=== PATIENT | male | born 1955 | race Caucasian/White ===

== ENCOUNTER 2020-01-19 10:51 | Outpatient (RCR) | payer MEDICARE, OTHER ==
[~2020-01-19] VITALS: Ht 190.5 cm; Wt 150.4 kg
[~2020-01-19 10:51] MED LIST: CALCIUM 600600 MG PO; CARAFATE 1GM1 G PO; HEALTH CARE AM600 M1 PO; INDOCIN50 MG PO; LASIX 20MG TABL20 MG PO; MULTIPLE VITAMI1 CAP PO; NEXIUM 40MG40 MG PO; NORCO 325 MG-51 TAB PO; POTASSIUM99 MG PO; PRILOSEC 20MG20 MG PO; PRINIVIL20 MG PO; SYNTHROID0.05 MG/TA PO; ULTRAM 50MG TAB50 MG PO; VITAMIN D5000 IU PO
[2020-01-19] MEDS ORDERED: CLEOCIN HCL300 MG PO (11:20)
[2020-01-19] MEDS ORDERED: NORCO 325 MG-7.1 TAB PO (11:21)
[2020-01-19] MEDS ORDERED: FLEXERIL 1010 MG/TAB PO (11:21)
[2020-01-19] MEDS ORDERED: NEURONTIN300 MG/CAP PO (11:21)
[2020-01-19] MEDS ORDERED: CARAFATE 1GM1 G PO (11:22)
[2020-01-19] MEDS ORDERED: PRILOSEC 20MG20 MG PO (11:23)
[2020-01-19] MEDS ORDERED: FLOMAX 0.40.4 MG/CAP PO (11:23)
[2020-01-19] MEDS ORDERED: LYRICA 150MG C150 MG PO (11:23)
[2020-01-19] MEDS ORDERED: REQUIP 1MG T1 MG/TAB PO (11:24)
[2020-01-19] MEDS ORDERED: LASIX 20MG TABL20 MG PO (11:24)
[2020-01-19] MEDS ORDERED: PAXIL 20MG20 MG PO (11:24)
[2020-01-19] MEDS ORDERED: ONE-A-DAY ESSE1 EACH PO (11:25)
[2020-01-19] MEDS ORDERED: ZESTRIL 20MG TA20 MG PO (11:25)
[2020-01-19] MEDS ORDERED: VITAMIN B12 1541 TAB PO (11:27)
[2020-01-19 12:35] VITALS: BP 152/83; PULSE 73; TEMP 97.9
--- NOTE | 2020-01-19 13:00 | NUR ---
Pt assisted out to 's car by wheelchair. PICC line patent, and first dose of antibiotic was given. Pt and express understanding to follow up with [place] and [facility] for additional antibiotic and future PICC cares.
== END 2020-01-19 13:00 ==
LOC: EUO 10:51
DX: M46.40 Discitis, unspecified, site unspecified (principal); E11.69 Type 2 diabetes mellitus with other specified complication; M46.20 Osteomyelitis of vertebra, site unspecified
CPT/HCPCS: C1751; J0878

== ENCOUNTER → 2021-11-11 | Outpatient (CLI) | payer MEDICARE, OTHER ==
[~2021-11-11] MED LIST changes: +CLEOCIN HCL300 MG PO; +FLEXERIL 1010 MG/TAB PO; +FLOMAX 0.40.4 MG/CAP PO; +LYRICA 150MG C150 MG PO; +NEURONTIN300 MG/CAP PO; +NORCO 325 MG-7.1 TAB PO; +ONE-A-DAY ESSE1 EACH PO; +PAXIL 20MG20 MG PO; +REQUIP 1MG T1 MG/TAB PO; +VITAMIN B12 1541 TAB PO; +ZESTRIL 20MG TA20 MG PO
[2021-11-11 08:05] LABS: ARTERIAL BLD GAS O2 SATURATION 94.6 % (92-100); ARTERIAL BLD GAS TCO2 CT 21.3; ARTERIAL BLOOD GAS BASE EXCESS -4.4 (-2-2); ARTERIAL BLOOD GAS HCO3 20.2 meq/L (22-26); ARTERIAL BLOOD GAS PCO2 35.7 mmHg (35-45); ARTERIAL BLOOD GAS PO2 79.9 mmHg (80-100); ARTERIAL BLOOD GAS pH 7.37 (7.35-7.45)
== END ==
LOC: COL.PUL 07:11
PROVIDERS: Internal Medicine Pulmonary Disease
DX: R06.02 Shortness of breath (principal)

== ENCOUNTER 2022-07-29 14:33 | Inpatient (IN) | payer MEDICARE, OTHER ==
[~2022-07-29] VITALS: Ht 190.5 cm; Wt 137.3 kg
[~2022-07-29 14:33] MED LIST changes: -NEURONTIN300 MG/CAP PO; +NEURONTIN600 MG/TAB PO; +NORCO 325 MG-101 TAB PO; -NORCO 325 MG-7.1 TAB PO; -PAXIL 20MG20 MG PO; +PAXIL40 MG PO
[2022-07-29 17:00] VITALS: BP_SYST 161
[2022-07-29 17:28] VITALS: BP 161/80; PULSE 102; TEMP 98.8
[2022-07-29 17:29] LABS: MEAN CELL VOLUME 81 fl (80.0-100.0); MEAN CORPUSCULAR HGB CONC 32 g/dl (33.0-37.0); MEAN PLATELET VOLUME 9.5 fl (7.4-10.4); PLATELET COUNT 665 K/mm3 (130-400); RED BLOOD COUNT 3.74 M/mm3 (4.20-5.60); REDCELL DISTRIBUTION WIDTH-CV 15.8 % (11.5-14.5)
[2022-07-29 17:31] LABS: HEMATOCRIT 30.3 % (42.0-52.0); HEMOGLOBIN 9.6 g/dl (13.5-18.0); MEAN CORPUSCULAR HEMOGLOBIN 26 pg (27-31)
[2022-07-29 17:33] LABS: CALCIUM 9.2 mg/dL (8.4-10.2); CREATININE, serum 0.92 mg/dL (0.72-1.25); POTASSIUM 3.2 mmol/L (3.5-4.5)
--- NOTE | 2022-07-29 17:42 | NUR ---
PATIENT ADMITTED TO ROOM 314 FROM [facility] ACCOMPANIED BY EMS. PATIENT IS ALERT AND ORIENTED X4. C/O PAIN 11/13- STATES THIS IS CHRONIC BACK PAIN FOR WHICH HE TAKES OXYCODONE. LUNGS CTA. TELEMETRY IMPLEMENTED PER ORDER. CARDIOLOGY CONSULTED PER ORDER. ON CARDIZEM DRIP AT 10ML/HR UPON ARRIVAL, NEW ORDERS RECEIVED TO CONTINUE CARDIZEM DRIP. HEPARIN DRIP RUNNING WELL. PATIENT ORIENTED TO ROOM. DENIES NEEDS AT THIS TIME. CALL LIGHT WITHIN REACH.
[2022-07-29] MEDS ORDERED: ROBAXIN 75750 MG/TAB PO (18:14)
--- NOTE | 2022-07-29 19:45 | NUR ---
Initial shift assessment done- has been waiting for his home pain meds to be reordered-states chronic back pain for the past 15 yrs has been on pain meds- did give him the [place] as ordered from home meds-- after given he asked where the second one was ? I said only one was ordered per his med rec and it was a [place] 10 ,,, pt then said asked if oxycodone is different than [place] because he takes oxycodone at home not [place]-- states he takes 20mg of oxycodone po every 4 hours -- he has taken it like this for years due to chrnic back pain-- pt states he really needs this, back pain 12/14. Will call regis RUIZ with this update. Has heparin drip at 23cc/hr, also cardizem drip at 10cc/hr , VSS,
[2022-07-29 20:00] VITALS: BP_SYST 127
[2022-07-29 20:12] VITALS: BP 151/76; PULSE 92; TEMP 98.5
[2022-07-29 23:52] VITALS: BP 127/70; PULSE 95; TEMP 98.4
[2022-07-30] VITALS (20 sets, daily range): BP systolic 115–173; BP diastolic 65–89; PULSE 75–110; TEMP 98–98.6
[2022-07-30] MEDS ORDERED: DAZIDOX10 MG PO (03:44)
[2022-07-30] MEDS ORDERED: PERCOCET 325 MG1 TAB PO (05:36)
--- NOTE | 2022-07-30 06:00 | NUR ---
Has been sleeping fair most of the night-- VSS, states his back pain 11/13- has been getting the oxycodone every 4 nickolas hours, did talk to Loly RUIZ about the oxycodone and finding out per pharmacy filled info that it is actually percocet that he has been taking-- she did change this in JUN- pt requests pain meds and then falls back asleep before i can give them to him- heparin drip is at 24.5cc/hr at this time- hepxa at 0700.
[2022-07-30 08:01] LABS: BASO % 0.5 % (0.0-2.0); EOS # 0.2 K/mm3 (0.0-0.7); EOS % 2.1 % (0.0-4.0); GRAN # 5.8 K/mm3 (1.4-6.5); GRAN % 66.1 % (42.2-75.2); LYMPH % 22.7 % (20.0-51.0); MEAN CELL VOLUME 83 fl (80.0-100.0); MEAN CORPUSCULAR HGB CONC 31 g/dl (33.0-37.0); MEAN PLATELET VOLUME 9.6 fl (7.4-10.4); MONO # 0.7 K/mm3 (0.1-0.6); MONO % 8.3 % (1.7-9.3); PLATELET COUNT 670 K/mm3 (130-400); RED BLOOD COUNT 3.55 M/mm3 (4.20-5.60); REDCELL DISTRIBUTION WIDTH-CV 15.8 % (11.5-14.5)
[2022-07-30 08:07] LABS: HEMATOCRIT 29.4 % (42.0-52.0); HEMOGLOBIN 9.2 g/dl (13.5-18.0); MEAN CORPUSCULAR HEMOGLOBIN 26 pg (27-31)
[2022-07-30 08:08] LABS: ALBUMIN 2.6 gm/dL (3.4-4.8); CALCIUM 9.4 mg/dL (8.4-10.2); CREATININE, serum 0.91 mg/dL (0.72-1.25); MAGNESIUM 1.6 mg/dL (1.6-2.6); PHOSPHOROUS 3.1 mg/dL (2.3-4.7); POTASSIUM 3.2 mmol/L (3.5-4.5)
--- NOTE | 2022-07-30 08:48 | NUR ---
Shift assessment done this morning. Patient is resting on bed. Complains pain 6/10. Pain meds is given around 0630 by night nurse. Patient is on 4LNC. Denies any SOB. Will continue to monitor.
--- NOTE | 2022-07-30 08:55 | NUR ---
SW met with the patient to discuss discharge plan. The patient lives in [place] with his , Lois (ph#[phone]). He reports independence with ADLs and has a cane and walker available if needed. The patient is currently on 4 liters of oxygen. He confirms he does not have home oxygen. The patient's PCP is Dr. Bob Lazo and he obtains his medications from [facility]. The patient does not have a DPOA-HC and he was not interested in completing one at this time. The patient plans to return home with his upon discharge. No additional needs at this time. *Discharge plan: home with *
--- NOTE | 2022-07-30 09:51 | NUR ---
Initial visit; Patient thanked Technical Applications Scientist for looking in on him and offering Spiritual Care though declined. Technical Applications Scientist wished him a blessed day.
[2022-07-30] MEDS ORDERED: PRINIVIL20 MG PO (12:33)
--- NOTE | 2022-07-30 13:30 | NUR ---
Dr. Thompson is notified that his cardizem drip was stopped for approximately for about an hour around this around 1230pm to 1330pm. Dr. Thompson said its ok.
--- NOTE | 2022-07-30 14:55 | NUR ---
Patient is back from Environmental Journalist. Alert and oriented, and vital signs are stable.
--- NOTE | 2022-07-30 17:15 | NUR ---
Patient is Tachicardic running upper 140s. He complained SOB after using restroom. His oxygen saturation was 88% on 4L NC. Increased O2 5L and he is on 94% right now. Dr. Maynard is notified. He has ordered EKG at this time. Will continue to monitor.
[2022-07-31 03:47] VITALS: BP 147/77; PULSE 102; TEMP 97.9
[2022-07-31 07:05] LABS: BASO % 0.4 % (0.0-2.0); EOS # 0.2 K/mm3 (0.0-0.7); EOS % 2.8 % (0.0-4.0); GRAN # 5.2 K/mm3 (1.4-6.5); GRAN % 68.6 % (42.2-75.2); LYMPH # 1.5 K/mm3 (1.2-3.4); LYMPH % 19.3 % (20.0-51.0); MEAN CELL VOLUME 81 fl (80.0-100.0); MEAN CORPUSCULAR HGB CONC 32 g/dl (33.0-37.0); MEAN PLATELET VOLUME 9.5 fl (7.4-10.4); MONO # 0.6 K/mm3 (0.1-0.6); MONO % 8.2 % (1.7-9.3); PLATELET COUNT 671 K/mm3 (130-400); RED BLOOD COUNT 3.79 M/mm3 (4.20-5.60); REDCELL DISTRIBUTION WIDTH-CV 15.5 % (11.5-14.5)
[2022-07-31 07:10] LABS: HEMATOCRIT 30.8 % (42.0-52.0); HEMOGLOBIN 9.7 g/dl (13.5-18.0); MEAN CORPUSCULAR HEMOGLOBIN 26 pg (27-31)
[2022-07-31 07:25] LABS: ALBUMIN 2.6 gm/dL (3.4-4.8); CALCIUM 9.8 mg/dL (8.4-10.2); CREATININE, serum 0.95 mg/dL (0.72-1.25); MAGNESIUM 1.6 mg/dL (1.6-2.6); PHOSPHOROUS 3.4 mg/dL (2.3-4.7)
[2022-07-31 08:07] VITALS: BP 152/80; PULSE 96; TEMP 98.4
[2022-07-31 08:53] VITALS: BP_SYST 152
[2022-07-31 11:58] VITALS: BP 137/77; PULSE 60; TEMP 97.9
[2022-07-31 13:01] VITALS: BP_SYST 137
[2022-07-31] MEDS ORDERED: PACERONE200 MG PO ×2 (13:27)
[2022-07-31] MEDS ORDERED: ELIQUIS 5MG PO ×2 (13:28)
[2022-07-31] MEDS ORDERED: CARDIZEM CD 12120 MG PO ×2 (13:28)
[2022-07-31] MEDS ORDERED: PREDNISONE10 MG PO ×2 (13:48)
[2022-07-31] MEDS ORDERED: CEFTIN500 MG PO ×2 (13:49)
[2022-07-31] MEDS ORDERED: DOXYCYCLINE 10100 MG PO ×2 (13:49)
--- NOTE | 2022-07-31 14:02 | NUR ---
The clinical team is ready to discharge the patient today. An exercise oximetry was ordered. RT notified SW that the patient qualified for 4 liters of oxygen. The patient is now in droplet isolation. SW contacted the patient to address the above and inquire what DME company he would like to get the oxygen from. The patient is agreeable to getting the oxygen from [facility]. EMILY contacted and faxed the oxygen order to Don at [facility]. Don states that they will deliver the oxygen to the patient's room today. RN updated. No additional needs at this time.
--- NOTE | 2022-07-31 17:39 | NUR ---
Pt reported that Eloquis was going to have a $200.00 deductible and told his pharmacy not to fill it. This nurse reiterated the importance of blood thinners with a dx of afib. This nurse called [facility] to confirm and spoke with Ryan who did infact confirm. Pt has Medicare ([employer]) which doesn't allow use of agricultural researcher coupon this nurse requested from pharmacy. This nurse contact Dr. Maynard who then came to speak to the pt. This nurse administered bedtime eloquis prior to discharge and notified Dr. Thompson that follow up would be required for the patient. Pt also requested pain medication prior to discharge- Percocet 2 tabs administered po.
--- NOTE | 2022-07-31 17:58 | NUR ---
Patient is discharged home. Discharge instruction is reviewed with patient and his family. Patient verbalizes understanding of discharge instructions. IV is discontinued. This nurse escorted the patient to his private vehicle along side with his family.
== END 2022-07-31 16:20 | disposition home or self-care (01) | DRG 193 ==
LOC: SURG 14:33 → MEDICAL 16:41
PROVIDERS: Nurse Practitioner; ADMIT Internal Medicine
DX: J18.9 Pneumonia, unspecified organism (principal); J96.01 Acute respiratory failure with hypoxia; I48.91 Unspecified atrial fibrillation; D64.9 Anemia, unspecified; E87.6 Hypokalemia; D75.839 Thrombocytosis, unspecified; K21.9 Gastro-esophageal reflux disease without esophagitis; N40.0 Benign prostatic hyperplasia without lower urinary tract symptoms; Z96.653 Presence of artificial knee joint, bilateral; Z20.822 Contact with and (suspected) exposure to COVID-19; G89.29 Other chronic pain; M54.9 Dorsalgia, unspecified; M79.2 Neuralgia and neuritis, unspecified; I35.0 Nonrheumatic aortic (valve) stenosis; Z88.6 Allergy status to analgesic agent; Z98.84 Bariatric surgery status; Z88.0 Allergy status to penicillin
CPT/HCPCS: J0696; J1644; J1940; J2704; J2930; J3480

== ENCOUNTER 2022-09-18 15:12 | Emergency (ER) | payer MEDICARE, OTHER ==
[~2022-09-18] VITALS: Ht 190.5 cm; Wt 127.3 kg
[~2022-09-18 15:12] MED LIST changes: +CARDIZEM CD 12120 MG PO; +CEFTIN500 MG PO; +CORDARONE200 MG/TAB PO; +DAZIDOX10 MG PO; +DOXYCYCLINE 10100 MG PO; +ELIQUIS 5MG PO; +PACERONE200 MG PO; +PERCOCET 325 MG1 TAB PO; +PREDNISONE10 MG PO; +ROBAXIN 75750 MG/TAB PO
[2022-09-18 15:15] VITALS: TEMP 97.9
[2022-09-18] MEDS ORDERED: NS 1,000 ML IV ONE (15:30)
[2022-09-18 15:40] LABS: BASO # 0.1 K/mm3 (0.0-0.2); BASO % 0.5 % (0.0-2.0); EOS % 0.1 % (0.0-4.0); GRAN # 6.7 K/mm3 (1.4-6.5); GRAN % 69.2 % (42.2-75.2); HEMATOCRIT 35.4 % (42.0-52.0); HEMOGLOBIN 10.8 g/dl (13.5-18.0); LYMPH # 2.1 K/mm3 (1.2-3.4); LYMPH % 21.8 % (20.0-51.0); MEAN CELL VOLUME 84 fl (80.0-100.0); MEAN CORPUSCULAR HEMOGLOBIN 26 pg (27-31); MEAN CORPUSCULAR HGB CONC 31 g/dl (33.0-37.0); MEAN PLATELET VOLUME 9.3 fl (7.4-10.4); MONO # 0.8 K/mm3 (0.1-0.6); PLATELET COUNT 517 K/mm3 (130-400); RED BLOOD COUNT 4.23 M/mm3 (4.20-5.60); REDCELL DISTRIBUTION WIDTH-CV 17.5 % (11.5-14.5)
[2022-09-18 15:57] LABS: ALANINE AMINOTRANSFERASE 21 U/L (0-55); ALBUMIN 3.6 gm/dL (3.4-4.8); ALKALINE PHOSPHATASE 101 U/L (40-150); ANION GAP 14 mmol/L (7-16); AST,SGOT 19 U/L (5-34); BILIRUBIN,TOTAL 0.5 mg/dL (0.2-1.2); BLOOD UREA NITROGEN 27 mg/dL (8-26); CALCIUM 9.8 mg/dL (8.4-10.2); CHLORIDE 103 mmol/L (98-107); CREATINE KINASE 22 U/L (30-200); CREATININE, serum 1.94 mg/dL (0.72-1.25); GLUCOSE 111 mg/dL (70-99); POTASSIUM 4.4 mmol/L (3.5-4.5); SODIUM 140 mmol/L (136-145); TOTAL PROTEIN 7.7 gm/dL (6.2-8.1)
[2022-09-18 16:05] LABS: TROPONIN-I < 0.010 ng/mL (0.00-0.033)
[2022-09-18 16:11] LABS: INR 1.3 (0.8-3.0); PROTHROMBIN TIME 15.4 SECONDS (9.7-12.8)
[2022-09-18] MEDS ORDERED: oxyCODONE/Acetaminophen 10-325 MG TAB PO ONE (17:00)
[2022-09-18 17:41] VITALS: BP 128/84; PULSE 80
== END 2022-09-18 17:41 | disposition home or self-care (01) ==
LOC: COL.ER 15:12
PROVIDERS: Emergency Medicine
DX: I95.9 Hypotension, unspecified (principal); N17.9 Acute kidney failure, unspecified; I48.91 Unspecified atrial fibrillation; Z79.899 Other long term (current) drug therapy; Z88.6 Allergy status to analgesic agent; Z79.01 Long term (current) use of anticoagulants
CPT/HCPCS: J7030

== ENCOUNTER 2022-12-18 14:32 | Observation (INO) | payer MEDICARE, OTHER ==
[~2022-12-18] VITALS: Ht 190.5 cm; Wt 108.0 kg
[2022-12-18 15:24] LABS: BASO # 0.1 K/mm3 (0.0-0.2); BASO % 0.5 % (0.0-2.0); EOS # 0.1 K/mm3 (0.0-0.7); EOS % 0.8 % (0.0-4.0); GRAN % 70.3 % (42.2-75.2); LYMPH # 2.1 K/mm3 (1.2-3.4); LYMPH % 21.1 % (20.0-51.0); MEAN CELL VOLUME 78 fl (80.0-100.0); MEAN CORPUSCULAR HGB CONC 29 g/dl (33.0-37.0); MEAN PLATELET VOLUME 9.3 fl (7.4-10.4); MONO # 0.7 K/mm3 (0.1-0.6); MONO % 6.9 % (1.7-9.3); PLATELET COUNT 741 K/mm3 (130-400); RED BLOOD COUNT 3.78 M/mm3 (4.20-5.60); REDCELL DISTRIBUTION WIDTH-CV 15.6 % (11.5-14.5)
[2022-12-18 15:25] LABS: HEMATOCRIT 29.6 % (42.0-52.0); HEMOGLOBIN 8.6 g/dl (13.5-18.0); INR 1.6 (0.8-3.0); MEAN CORPUSCULAR HEMOGLOBIN 23 pg (27-31); PROTHROMBIN TIME 16.9 SECONDS (9.7-12.8)
[2022-12-18 15:35] LABS: ALBUMIN 3.2 gm/dL (3.4-4.8); BILIRUBIN,TOTAL 0.4 mg/dL (0.2-1.2); CALCIUM 9.5 mg/dL (8.4-10.2); CREATININE, serum 0.95 mg/dL (0.72-1.25); POTASSIUM 3.9 mmol/L (3.5-4.5); TOTAL PROTEIN 7.4 gm/dL (6.2-8.1)
[2022-12-18 15:48] LABS: TROPONIN-I 0.239 ng/mL (0.00-0.033)
[2022-12-18 17:58] VITALS: BP 129/61; PULSE 59; TEMP 97.8
--- NOTE | 2022-12-18 18:33 | NUR ---
Patient arrived to the medical unit, alert and oriented x 4, states no chest pain or SOB at this time. at the bedside. Telemetry in place. Assesment intake completed.
[2022-12-18] MEDS ORDERED: CARDIZEM 30MG T30 MG PO (19:04)
[2022-12-18] MEDS ORDERED: LOPRESSOR 225 MG/TAB PO (19:07)
[2022-12-18 19:16] VITALS: BP 117/60; PULSE 59; TEMP 98.1
--- NOTE | 2022-12-18 19:21 | NUR ---
Report given to night RN. DPOA Added copy to chart.
[2022-12-18 21:48] VITALS: BP_SYST 117
[2022-12-18 21:58] LABS: PH 5.5 (5.0-8.5); URINE APPEARANCE Clear (CLEAR/HAZY); URINE BLOOD TRACE-INTACT (NEGATIVE); URINE COLOR Yellow (YELLOW); URINE GLUCOSE Negative (NEGATIVE); URINE KETONE Negative (NEGATIVE); URINE NITRATE Positive (NEGATIVE); URINE PROTEIN(semi-quant) TRACE (NEGATIVE); URINE UROBILINOGEN 0.2 E.U/dL (0.2-1.0)
[2022-12-18 22:00] LABS: MUCOUS Present (NOT PRESENT); SQUAMOUS EPITHELIAL 0-2 /hpf (0-10); URINE BACTERIA Rare /hpf (NONE SEEN)
[2022-12-18 23:20] VITALS: BP 131/57; PULSE 61; TEMP 97.9
--- NOTE | 2022-12-18 23:52 | NUR ---
PATIENT LYING IN BED, ALERT AND ORIENTED X4. PATIENT DENIES CHEST PAIN AND SHORTNESS OF BREATH AT THIS TIME BUT DOES REPORT GETTING SOME SHORTNESS OF BREATH WITH EXERTION. PT REPORTS CONSTANT, ACHING PAIN GENERALIZED THROUGHOUT THE BODY RATED A 7-8/10, PER REQUEST PERCOCET GIVEN. PT PROVIDED EDUCATION ABOUT BLAIR CATHETER INSERTION AND REASON FOR PLACEMENT, PT REPORTED HAVING EXPERIENCE WITH THEM AND HAD NO FURTHER QUESTIONS. 16 SYRIAC BLAIR PLACED PER ORDER AFTER PERFORMING PERICARE, URINE RETURN NOTED AND BALLOON FILLED WITH 10 ML FLUSH, DRAINING CLEAR YELLOW URINE. SCATTERED SCABBS NOTED ON BLE AND BRUISING ON THE RIGHT FOOT. RIGHT KNEE HAS SMALL BANDAID WITH SOME ADDITIONAL CLOSED SCRAPES ON THE RIGHT LOZANO. CALL LIGHT IS WITHIN REACH, WILL CONTINUE TO MONITOR.
[2022-12-19] VITALS (11 sets, daily range): BP systolic 97–154; BP diastolic 49–71; PULSE 66–78; TEMP 97.9–98.1
--- NOTE | 2022-12-19 00:57 | NUR ---
PATIENT REPORTED FEELING SLIGHT SHORTNESS OF BREATH, IVELISSE CHEST PAIN, DIZZINESS OR ADDITIONAL SYMPTOMS. PER PATIENT REQUEST, HEAD OF BED REMAINS AT 30 DEGREES. 02 SATS ARE 94-97 PERCENTAGES, WILL CONTINUE TO MONITOR.
[2022-12-19 05:59] LABS: BASO % 0.3 % (0.0-2.0); EOS # 0.1 K/mm3 (0.0-0.7); EOS % 1.2 % (0.0-4.0); GRAN # 6.5 K/mm3 (1.4-6.5); GRAN % 71.8 % (42.2-75.2); LYMPH # 1.6 K/mm3 (1.2-3.4); LYMPH % 17.5 % (20.0-51.0); MEAN CELL VOLUME 77 fl (80.0-100.0); MEAN CORPUSCULAR HGB CONC 29 g/dl (33.0-37.0); MEAN PLATELET VOLUME 9.1 fl (7.4-10.4); MONO # 0.8 K/mm3 (0.1-0.6); MONO % 8.8 % (1.7-9.3); PLATELET COUNT 674 K/mm3 (130-400); RED BLOOD COUNT 3.27 M/mm3 (4.20-5.60); REDCELL DISTRIBUTION WIDTH-CV 15.6 % (11.5-14.5)
[2022-12-19 06:14] LABS: CALCIUM 8.4 mg/dL (8.4-10.2); CREATININE, serum 0.92 mg/dL (0.72-1.25); POTASSIUM 3.8 mmol/L (3.5-4.5)
[2022-12-19 06:34] LABS: HEMATOCRIT 25.3 % (42.0-52.0); HEMOGLOBIN 7.4 g/dl (13.5-18.0); MEAN CORPUSCULAR HEMOGLOBIN 23 pg (27-31)
[2022-12-19 11:18] LABS: COLLECTION METHOD CATHETER
[2022-12-19] MEDS ORDERED: TOPROL XL 25MG25 MG PO (14:40)
[2022-12-19] MEDS ORDERED: OMNICEF 300MG300 MG PO (15:03)
--- NOTE | 2022-12-19 15:24 | NUR ---
Powerhouse Electrician Apprentice met with patient to discuss discharge planning. Patient lives in [place] with his , Lois (ph#[phone]) and sees Dr. Lazo for primary care. Patient obtains medications from [facility] pharmacy with no difficulties. Patient has a cane and walker at home and only uses them as needed. Patient reports independence with ADLS and plans to return home at discharge. Patient stated his DPOA-HC is his , Lois. Patient advised he believes he is discharging today. Discharge Plan: Home
--- NOTE | 2022-12-19 15:40 | NUR ---
PATIENT DISCHARGED INSTRUCTIONS WERE GIVEN. PATIENT VERBALIZED UNDERSTANDING AND ASWELL.PATIENT WAS ESCORTED OUT OF FACILITY BY STAFF. PATIENT WAS STABLE UPON LEAVING.
== END 2022-12-19 15:40 | disposition home health service (06) ==
LOC: COL.ER 14:32 → MEDICAL 16:34 → EDBEDREQ 17:13 → MEDICAL 12-19 15:40
PROVIDERS: Nurse Practitioner; ADMIT Internal Medicine
DX: I48.92 Unspecified atrial flutter (principal); R77.8 Other specified abnormalities of plasma proteins; I11.0 Hypertensive heart disease with heart failure; I50.23 Acute on chronic systolic (congestive) heart failure; G25.81 Restless legs syndrome; K21.9 Gastro-esophageal reflux disease without esophagitis; N40.0 Benign prostatic hyperplasia without lower urinary tract symptoms; F32.A Depression, unspecified; Z20.822 Contact with and (suspected) exposure to COVID-19; E66.9 Obesity, unspecified; G89.29 Other chronic pain; I34.0 Nonrheumatic mitral (valve) insufficiency; N39.0 Urinary tract infection, site not specified; R91.8 Other nonspecific abnormal finding of lung field; Z79.01 Long term (current) use of anticoagulants; Z91.81 History of falling; Z79.899 Other long term (current) drug therapy; Z68.29 Body mass index [BMI] 29.0-29.9, adult; Z87.891 Personal history of nicotine dependence
CPT/HCPCS: G0378; J0692; J1940; J2704